=== PATIENT | female | born 1960 | race Caucasian/White ===

== ENCOUNTER 2024-05-05 06:27 | Day surgery (SDC) | payer BC ==
[2024-05-05] MEDS: Lactated Ringers 1,000 ML IV SCH (07:04)
[2024-05-05] MEDS ORDERED: Propofol 200 MG/20 ML SDV ONE ×2 (07:05→08:10)
[2024-05-05] MEDS ORDERED: Midazolam 1 MG/ML 2 ML SDV ONE (07:05)
[2024-05-05] MEDS ORDERED: fentaNYL 50 MCG/ML SDV ONE (07:05)
[2024-05-05] MEDS ORDERED: Atropine 0.4 MG/ML SDV ONE (08:08)
== END 2024-05-05 09:45 | disposition home or self-care (01) ==
LOC: JP.SDS 06:27
PROVIDERS: ATTEND Surgery
DX: Z12.11 Encounter for screening for malignant neoplasm of colon (principal)
CPT/HCPCS: 00812; 45378; J2250; J2704; J3010; J7120; J0461